=== PATIENT | female | born 1995 | race Caucasian/White ===

== ENCOUNTER 2022-08-26 07:49 | Outpatient (CLI) | payer BC, SELFPAY ==
--- NOTE | 2022-08-26 08:15 | CRLHL7_ITS ---
For Patients: As a result of the Cures Act, medical imaging exams and procedure reports are released immediately into your electronic medical record. You may view this report before your referring provider. If you have questions, please contact your health care provider. INDICATION: First trimester scan, establish dates. COMPARISON: None. TECHNIQUE: Real-time becerra-scale imaging of the pelvis was performed. FINDINGS: Sonographic imaging demonstrates a single living intrauterine gestation. The embryo demonstrates a regular cardiac rate measuring 176 beats per minute. The embryo`s crown-rump length measurement of 3.3 cm corresponds to a gestational age of 10 weeks 2 days with a sonographic due date of 03/22/2023. There is a normal-appearing yolk sac. There are no gross abnormalities noted within the embryo at this early state of development. The gestational sac has a normal appearance. There is no evidence of a perigestational hemorrhage. The amount of fluid within the sac appears appropriate for gestational age. The cervix is closed. The myometrium appears normal. Normal right ovary. Nonvisualization of the left ovary. There are no suspicious fluid collections noted in the cul-de-sac. IMPRESSION: Normal first trimester OB ultrasound exam. Gestational age calculated at 10 weeks 2 days with a sonographic due date of 03/22/2023. Dictated by Felice Kohler MD @ 08/26/2022 11:11:12 AM (Electronically Signed)
== END 2022-08-26 07:50 | disposition home or self-care (01) ==
LOC: US 07:51
PROVIDERS: Visit Provider Physician Assistant
DX: Z34.91 Encounter for supervision of normal pregnancy, unspecified, first trimester (principal); Z3A.10 10 weeks gestation of pregnancy
CPT/HCPCS: 0353U; 76801; 86592; 86703; 86762; 86787; 86803; 86850; 86900; 86901; 87086; 87340; 87491; 87591

== ENCOUNTER 2022-10-28 11:53 | Outpatient (CLI) | payer BC, SELFPAY ==
--- NOTE | 2022-10-28 12:15 | CRLHL7_ITS ---
For Patients: As a result of the Century Cures Act, medical imaging exams and procedure reports are released immediately into your electronic medical record. You may view this report before your referring provider. If you have questions, please contact your health care provider. INDICATION: Evaluate anatomy. COMPARISON: 08/26/2022 TECHNIQUE: Real time becerra scale imaging of the fetus was performed as well as color Doppler analysis of the umbilical vessels. FINDINGS: Sonographic imaging demonstrates a single living intrauterine gestation. Fetus demonstrates a regular cardiac rate of 146 beats per minute. Fetus has a transverse position, head maternal left. The placenta lies anteriorly without evidence of placenta previa. The edge of the placenta is located 3.2 cm from the internal cervical os. Amniotic fluid volume appears normal. Single deepest vertical pocket: 5.0 cm. The cervix is closed and measures 3.7 cm in length. The composite ultrasound gestational age is calculated at 19 weeks 6 days with an estimated sonographic due date of 03/18/2023. The estimated weight is 312 grams which lies at the 58th %. The following biometric measurements were obtained: Biparietal diameter: 4.4 cm/19 weeks 3 days 44th% Head circumference: 16.4 cm/19 weeks 1 day 23rd% Abdominal circumference: 14.6 cm/19 weeks 6 days 57th% Femur length: 3.2 cm/19 weeks 6 days 51st% The HC/AC ratio measures: 1.12 range (1.08-1.26) On anatomic survey, there is a normal appearance of the cerebral ventricles, cavum septi pellucidi, cisterna magna and cerebellum. The nose and lips were difficult to visualize due to position. The profile is normal. The cervical, thoracic and lumbar spine are well visualized and appear normal. There is a normal four-chamber heart view and the left and right ventricular outflow tracts appear normal. The diaphragm and stomach appear normal. The kidneys and bladder also appear normal. There is a normal three-vessel cord and cord insertion site. The four extremities appear normal. IMPRESSION: Concordance of clinical and sonographic dating. Incomplete visualization of the nose and lips due to position. Remainder of the anatomic survey is normal. Short-term follow-up recommended. Dictated by Felice Kohler MD @ 10/29/2022 6:53:36 AM (Electronically Signed)
== END 2022-10-28 11:54 | disposition home or self-care (01) ==
LOC: US 11:53
PROVIDERS: Visit Provider Obstetrics & Gynecology
DX: Z34.92 Encounter for supervision of normal pregnancy, unspecified, second trimester (principal); Z3A.19 19 weeks gestation of pregnancy
CPT/HCPCS: 76805

== ENCOUNTER 2022-11-24 07:01 | Outpatient (CLI) | payer BC, SELFPAY ==
--- NOTE | 2022-11-24 07:15 | CRLHL7_ITS ---
For Patients: As a result of the Century Cures Act, medical imaging exams and procedure reports are released immediately into your electronic medical record. You may view this report before your referring provider. If you have questions, please contact your health care provider. INDICATION: Follow-up missed anatomy COMPARISON: 10/28/2022 TECHNIQUE: Real time becerra scale imaging of the fetus was performed. FINDINGS: Sonographic imaging demonstrates a single living intrauterine gestation. Fetus demonstrates a regular cardiac rate of 150 beats per minute. Fetus has a vertex position. The placenta lies anteriorly. Normal nose and lips. IMPRESSION: Normal nose and lips. Dictated by Felice Kohler MD @ 11/24/2022 10:14:55 AM (Electronically Signed)
== END 2022-11-24 07:02 | disposition home or self-care (01) ==
PROVIDERS: Visit Provider Obstetrics & Gynecology
DX: O35.AXX0 Maternal care for other (suspected) fetal abnormality and damage, fetal facial anomalies, not applicable or unspecified (principal)
CPT/HCPCS: 76816

== ENCOUNTER 2023-02-17 14:40 | Outpatient (CLI) | payer BC, SELFPAY ==
[2023-02-18 14:19] LABS: Strep B DNA Probe NEGATIVE (Negative)
[2023-02-18 15:01] LABS: Strep B Pen/Amox Allergy No
== END 2023-02-17 14:41 | disposition home or self-care (01) ==
LOC: NFLDREF 14:41
PROVIDERS: Visit Provider Obstetrics & Gynecology
DX: Z34.93 Encounter for supervision of normal pregnancy, unspecified, third trimester (principal); Z3A.35 35 weeks gestation of pregnancy
CPT/HCPCS: 87081; 87653

== ENCOUNTER 2023-02-24 14:31 | Outpatient (CLI) | payer BC, SELFPAY | END 2023-02-24 14:32 | disposition home or self-care (01) | LOC: NFLDREF 14:31 | PROVIDERS: Visit Provider Obstetrics & Gynecology | DX: Z34.93 Encounter for supervision of normal pregnancy, unspecified, third trimester (principal); Z3A.36 36 weeks gestation of pregnancy | CPT/HCPCS: 80053 ==

== ENCOUNTER 2023-03-21 15:54 | Inpatient (IN) | payer BC, SELFPAY ==
--- NOTE | 2023-03-21 16:08 | P.OBHP_ITS ---
OB - H&P: HPI Labor/Induction History of Present Illness Time Seen by Provider: 17:00 Date Seen: 03/21/23 Chief Complaint: The patient is a 28 year old 1 para 0 at 40 and 1/7 weeks gestation by LMP consistent with 1st trimester ultrasound, who presents for elective induction. course complicated by regular maternal heart rate (PVCs on EKG), obesity, migraines, abnormal Pap test and left carpal tunnel. Complete history and physical was documented by Dr. Mcmullen on 03/17/23, please see this note for complete details. Betsey note she is feeling well today, no acute concerns. She has had some cramping today, irregular. Denies regular/painful uterine contractions, vaginal bleeding or leaking of fluid. Endorses active movement. She previously completed her consent for induction, no questions or concerns at this time. Chief complaint: Maternity Specific Issues/Plans OB patient H&P by CGM on 02/24/23 1. Irregular maternal heart rate noted on 02/24/23: -EKG: Sinus rhythm with occasional premature ventricular complexes, asymptomatic. Continue observation. 2.Obesity, BMI 32.9 * Recommend aspirin 81 mg starting at 12 weeks 3. Migraines 4. History of positive HPV in 2019 and 2019. Patient reports benign colposcopy in 2020. Pap 2020:NIL/-HPV * pap at NOB: ASCUS, -HPV * Repeat pap with HPV cotesting 5. Carpal tunnel, left * Wears wrist splint Flu vaccine:03/02/23 COVID vaccine: Not vaccinated, declines Tdap:01/06/23 Meds Home Medications and Allergies Home Medications Medication Instructions Recorded Confirmed Type docosahexaenoic acid 200 mg mg PO 08/26/22 03/17/23 History capsule ( DHA) ascorbate calcium (vitamin C) 500 1 g PO Q6H 09/30/22 03/21/23 History mg tablet calcium carbonate 200 mg calcium 200 mg PO BID 12/23/22 03/21/23 History (500 mg) chewable tablet (Tums) Allergies Allergy/AdvReac Type Severity Reaction Status Date / Time No Known Drug Allergies Allergy Verified 03/17/23 13:45 OB - H&P: Exam Physical Exam: Vital signs: Physical exam: General: No acute distress Psych: Alert and oriented x3, full affect Heart: Regular rate and rhythm, no murmur rub or gallop Lungs: Clear to auscultation bilaterally Abdomen: Gravid. Otherwise soft and nontender. EFW 3600g by Kristina. heart rate: Reactive NST. Baseline of 130 beats per minute, moderate variability, accelerations present, decelerations absent. Cervix: Fingertip, long, posterior Presentation: Cephalic OB - Problem Based A/P Additional Plan (1) : Status: Acute (2) PVC (premature ventricular contraction): Status: Acute (3) Elevated blood pressure reading without diagnosis of hypertension: Status: Acute Plan Ms. Gutierrez is a 28yo at 40w1d GA admitted for elective IOL. ANC complicated by maternal PVCs, obesity, migraines, abnormal pap test and carpal tunnel syndrome. Plan to admit to Labor and Delivery for IOL. She previously completed her induction consent form and H&P with Dr. Mcmullen on 03/17/2023. No questions at this time. - Start induction of labor with misoprostol - EFW 3600g by Kristina - Betsey had one mild range BP on arrival. She is asymptomatic with no headache, vision changes or RUQ pain. Plan to monitor BP for now - will obtain HELLP labs if she has any further elevated BPs. - Blood type O positive - GBS negative
[2023-03-21 16:30] VITALS: BP 135/99; PULSE 74; PULSE 94; TEMP 37; O2SAT 97
[2023-03-21 16:35] VITALS: BMI 35.1
[2023-03-21 17:05] VITALS: BP 138/78; PULSE 104
[2023-03-21] MEDS: miSOPROStoL 25 MCG/0.25 TABLET VAGINAL ×2 (17:29→22:42)
[2023-03-21 21:52] VITALS: BP 137/81; PULSE 84; RESP 16; TEMP 36.5
[2023-03-21 22:41] VITALS: BP 138/91; PULSE 100; RESP 16; TEMP 36.9
[2023-03-21 23:07] LABS: Basophils Absolute Auto 0.02 K/uL (0.00-0.30); Basophils Percent Auto 0.2 % (0.0-3.0); Eosinophils Absolute Auto 0.08 K/uL (0.00-0.50); Hematocrit 36.6 % (33.0-51.0); Hemoglobin* 12.5 gm/dL (12.0-16.0); Immature Granulocytes Abs Auto 0.05 K/uL (0.00-0.30); Immature Granulocytes Pct Auto 0.6 %; Lymphocytes Absolute Auto 1.69 K/uL (0.90-2.90); Lymphocytes Percent Auto 20.2 % (20-44); Mean Corpuscular HGB Conc 34 gm/dL (32-36); Mean Corpuscular Hemoglobin 30 pg (26-34); Mean Corpuscular Volume 86 fL (80-100); Monocytes Percent Auto 10.9 % (0.0-11.0); Neutrophils Absolute Auto 5.61 K/uL (1.7-7.0); Neutrophils Percent Auto 67.1 % (42.0-72.0); Platelet Count* 189 K/uL (140-440); RDW Coefficient of Variation % 13.5 % (11.5-15.5); Red Blood Count 4.24 m/uL (4.00-5.20); White Blood Count* 8.36 K/uL (4.50-11.00)
[2023-03-21 23:11] LABS: Slide Review Reflex No
[2023-03-21 23:23] LABS: Aspartate Amino Transferase* 42 U/L (12-35); Creatinine* 0.6 mg/dL (0.5-1.5); Est. Creatinine Clearance* 143.28; Estimated Glomerular Filt Rate 124 ml/min
[2023-03-21 23:24] LABS: Alanine Aminotransferase* 15 U/L (4-35); Blood Urea Nitrogen* 12 mg/dL (5-24)
[2023-03-22] VITALS (113 sets, daily range): BP systolic 86–195; BP diastolic 49–121; PULSE 64–121; RESP 16–20; TEMP 36.7–37.6; O2SAT 96–100
[2023-03-22 01:30] LABS: Total Protein Urine 12 mg/dL
[2023-03-22 01:31] LABS: Creatinine Urine 173.5 mg/dL
[2023-03-22] MEDS: CALCIUM CARBONATE 500 MG CHEW PO (05:28)
--- NOTE | 2023-03-22 07:53 | P.OBPN_ITS ---
Subjective Time Seen by Provider: 07:20 Date Seen: 03/22/23 Narrative: Patient is comfortable. Aware of contractions. Feels like contractions have been increasing in frequency in severity since her water broke spontaneously at 5:15 a.m. Leaking meconium-stained fluid. Objective Exam: General appearance: Alert, cooperative white female in no acute distress Abdomen: Soft, gravid, nontender. 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 Consider Pitocin administration to augment labor if needed. We discussed meconium staining of the amniotic fluid. Business Investor notification recommended.
[2023-03-22] MEDS: OXYTOCIN 30 unit/500 ML in NS 30 UNIT/500 ML BAG IVPB (08:30)
[2023-03-22] MEDS: LACTATED RINGERS 1000 ML 1,000 ML 125 ML IV ×3 (08:30→22:48)
[2023-03-22 08:38] LABS: Hematocrit 39.1 % (33.0-51.0); Hemoglobin* 13.3 gm/dL (12.0-16.0); Mean Corpuscular HGB Conc 34 gm/dL (32-36); Mean Corpuscular Hemoglobin 29 pg (26-34); Mean Corpuscular Volume 86 fL (80-100); Platelet Count* 179 K/uL (140-440); Red Blood Count 4.56 m/uL (4.00-5.20); White Blood Count* 10.05 K/uL (4.50-11.00)
[2023-03-22 08:45] LABS: Slide Review Reflex No
[2023-03-22 08:52] LABS: Alanine Aminotransferase* 16 U/L (4-35); Aspartate Amino Transferase* 42 U/L (12-35); Blood Urea Nitrogen* 8 mg/dL (5-24); Creatinine* 0.5 mg/dL (0.5-1.5); Est. Creatinine Clearance* 171.94; Estimated Glomerular Filt Rate 129 ml/min
[2023-03-22] MEDS: LACTATED RINGERS 1000 ML 1,000 ML 1200 ML IV ×2 (13:46→14:40)
[2023-03-22] MEDS: PHENYLEPHRINE 100 MCG/ML SYRINGE IVP ×2 (14:01→14:36)
[2023-03-22] MEDS: ROPIVACAINE 0.2% 100 ml 100 ML 12 MG EPIDURAL (14:18)
[2023-03-22] MEDS: LIDOCAINE 2% (PF) 5 ML VIAL EPIDURAL (14:20)
--- NOTE | 2023-03-22 14:25 | P.ANBPRC_ITS ---
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 What is your current living situation?: I presently have a place to live Problems where you live: no known problems In the past 12 months, utilities in danger of being shut off: no In past 12 months, lack of transportation kept you from medical appts, meetings, work, or getting things needed for daily living: no In the past 12 mos, have been you worried that your food would run out before you had money to buy more?: never true In the past 12 mos, the food you bought just didn't last and you didn't have money to buy more?: never true Smoking Status: Never smoker How often does anyone, including family, friends and others, physically hurt you : never How often does anyone, including family, friends and others, insult or talk down to you: never How often does anyone, including family, friends and others, threaten you with harm: never How often does anyone, including family, friends and others, scream or curse at you: never Little interest or pleasure in doing things: not at all Feeling down, depressed, or hopeless: not at all Meds Home Medications and Allergies Home Medications Medication Instructions Recorded Confirmed Type docosahexaenoic acid 200 mg mg PO 08/26/22 03/17/23 History capsule ( DHA) ascorbate calcium (vitamin C) 500 1 g PO Q6H 09/30/22 03/21/23 History mg tablet calcium carbonate 200 mg calcium 200 mg PO BID 12/23/22 03/21/23 History (500 mg) chewable tablet (Tums) Allergies Allergy/AdvReac Type Severity Reaction Status Date / Time No Known Drug Allergies Allergy Verified 03/17/23 13:45 Results Labs Labs: Laboratory Results - last 24 hr 03/21/23 03/22/23 03/22/23 23:00 00:10 08:26 WBC 8.36 10.05 RBC 4.24 4.56 Hgb 12.5 13.3 Hct 36.6 39.1 MCV 86 86 MCH 30 29 MCHC 34 34 RDW Coeff of Kenzie 13.5 Plt Count 189 179 Neut % (Auto) 67.1 Lymph % (Auto) 20.2 [place] % (Auto) 10.9 Eos % (Auto) 1.0 Baso % (Auto) 0.2 Neut # (Auto) 5.61 Lymph # (Auto) 1.69 [place] # (Auto) 0.90 Eos # (Auto) 0.08 Baso # (Auto) 0.02 Abs Immat Gran (auto) 0.05 Imm/Tot Granulo (auto) 0.6 BUN 12 8 Creatinine 0.6 0.5 Estimated Creat Clear 143.28 171.94 Estimated GFR 124 129 AST 42 H 42 H ALT 15 16 Urine Creatinine 173.5 Protein/Creatinin Ratio 0.00 Urine Total Protein 12 Blood Type O Positive Antibody Screen NEGATIVE Vital Signs Vital Signs: Last Vital Signs Temp 98.2 F 03/22/23 12:06 Pulse 96 03/22/23 14:23 Resp 16 03/22/23 12:06 BP 113/80 03/22/23 14:23 Pulse Ox 100 03/22/23 14:21 Weight: 107.819 kg Height: 175.26 cm Anesthesia Procedures Epidural Insertion Patient Location: OB Start Time: 14:00 Stop Time: 14:30 Start Date: 03/22/23 Stop Date: 03/22/23 Reason for Block: procedure for pain Patient Position: sitting Performed By: Sami Lee Low Voltage Electrician: Lavelle Giraldo Preanesthetic Checklist: IV checked, risks and benefits discussed, monitors and equipment checked, pre-op evaluation, timeout performed and anesthesia consent Prep: chlorhexidine gluconate Monitoring: blood pressure monitoring, continuous pulse oximetry and heart rate Approach: midline Vertebral Space: lumbar (1-5) Epidural Technique: HELEN saline Needle Type: Tuohy needle Injection Technique: continuous catheter Needle gauge: 17 Needle Length (cm): 10 cm Needle Insertion Depth (cm): 6 Catheter Gauge: 19 Catheter Type: multi-orifice Catheter at skin depth (cm): 11 Test Dose Result: negative and lidocaine 1.5% with epinephrine 1 to 200,000
[2023-03-22] MEDS: ePHEDrine sulfate 5 MG/ML inj 10 MG IVP ×2 (15:01→16:13)
[2023-03-22] MEDS: ONDANSETRON 2 MG/ML inj 4 MG IV (16:48)
[2023-03-22] MEDS: LACTATED RINGERS 1000 ML 1,000 ML 1250 ML IV (17:12)
--- NOTE | 2023-03-22 17:38 | PM.OBPNL ---
Subjective Time Seen by Provider: 17:30 Date Seen: 03/22/23 Narrative: The patient is comfortable with the epidural. The infusion was turned down slightly in order to see if her blood pressures would normalize, as ever since the epidural was administered, there have been variable and late decelerations of the heart tone with contractions. The Pitocin infusion has been turned off. Despite maternal repositioning, including hands knees, heart tracing remains category 2 with intermittent variable and late decelerations with slow return. Objective Exam: General appearance: Alert, cooperative white female in no acute distress Abdomen: Soft, gravid, nontender Extremities: 1+ edema bilaterally Vital Signs: Last Vital Signs Temp 99.0 F 03/22/23 17:25 Pulse 115 H 03/22/23 17:37 Resp 16 03/22/23 17:25 BP 105/66 03/22/23 17:37 Pulse Ox 99 03/22/23 17:16 Pelvic Exam Dilation (cm): 5 Effacement (%): 80 Station: -3 Comments: Particulate meconium-stained amniotic fluid Contractions Monitor mode: External Contraction pattern: Regular Contraction intensity: Mild Assessment Amniotic Membrane Status: SROM (0515, mec-stained) Status: Category ll Heart Rate Baseline: 135 Penitentiary Variability: Moderate (6-25) Monitor Accelerations: Present Monitor Decelerations: Late Plan Plan: At this point, I am concerned about well-being. She is not close to delivering, and given the meconium staining of the amniotic fluid and the periodically variable and late heart rate decelerations, I do not believe that the fetus can tolerate a lengthy labor. I would recommend proceeding with delivery. The patient is in agreement. Informed consent for primary section was obtained. OR staffs were notified. Pediatric evaluation at the time of delivery will be requested.
[2023-03-22] MEDS: CEFAZOLIN 1 GM inj 3 GM IVP (18:17)
[2023-03-22] MEDS: AZITHROMYCIN 500 MG in 0.9 % SODIUM CHLORIDE 250 ml 250 ML 255 MG IVPB (18:17)
--- NOTE | 2023-03-22 18:17 | W.ANESCHARGE ---
Anesthesia Charges Start Date/Time Anesthesia Start Date: 03/22/23 Anesthesia Start Time: 18:07 Stop Date/Time Anesthesia Stop Date: 03/22/23 Anesthesia Stop Time: 19:35
--- NOTE | 2023-03-22 18:40 | SUR.OPER ---
STATED THAT THE PLACENTA DID NOT NEED TO GO TO PATHOLOGY. THIS MANAGER FREELANCE ACKNOWLEDGED THAT STATEMENT.
[2023-03-22] MEDS: KETOROLAC 30 MG/ML inj IVP (19:12)
--- NOTE | 2023-03-22 19:18 | W.PM.GYNPROC ---
Procedure Note Date of procedure: 03/22/23 Pre-op diagnosis: 40 2/7 weeks gestation, intolerance of labor Post-op diagnosis: same Procedure: Primary low transverse section Anesthesia: epidural Complications: None Surgeon: Nilsa Blunt MD Estimated blood loss (mL): 630 Pathology: none sent Condition: stable Disposition: floor Findings: Live-born female , cephalic presentation, occiput transverse position, nuchal cord x1, normal uterus, tubes, and ovaries bilaterally. Thick meconium-stained fluid. Infant weight 8 lb 4 oz. Apgars 8 and 9 at 1 and 5 minutes respectively. Procedure Description: After obtaining informed consent, the patient was taken to the operating room where spinal anesthesia was obtained and found to be adequate. She was prepared and draped in the normal sterile fashion in the dorsal supine position with a leftward tilt. A Pfannenstiel skin incision was made with a scalpel. This incision was carried down to the underlying layer of fascia with the Bovie. The fascia was incised in the midline and the incision extended laterally. The superior and inferior aspects of the fascial incision were grasped with Sara clamps, elevated and the underlying rectus muscles dissected off sharply and with electrocautery. The rectus muscles were then in the midline. The Leon O retractor was then placed into the incision. The lower uterine segment was then incised in a transverse fashion with the scalpel. Upon entry into the uterus, meconium-stained amniotic fluid was noted. The uterine incision was extended laterally with blunt finger fractionation. The infant's head was delivered atraumatically, followed by the remainder of the 's body. The nose and mouth were suctioned with the bulb suction. The cord was doubly clamped and cut, and the was handed off the field to Gardenia Haro NP for evaluation. The placenta was delivered spontaneously with umbilical cord traction and fundal massage. The uterus was cleared of all clots and debris. The uterine incision was reapproximated in a running locking fashion with a 0 chromic suture. A 2nd layer of the same suture was used to imbricate in horizontal fashion. The gutters were irrigated and suctioned. All instruments and retractors were removed. The anterior peritoneum was reapproximated in a running fashion with a 3-0 Vicryl suture. The subfascial tissues were carefully inspected and hemostasis assured. The fascia was reapproximated in a running fashion with a looped 0 Maxon suture. The subcutaneous tissues were copiously irrigated. Hemostasis was assured. The skin was closed in a subcuticular fashion with 4-0 Vicryl. Exofin and Mepilex dressing were applied. The patient tolerated the procedure well. Sponge, lap, needle, and instrument counts were reported as correct x2. The patient was taken to the recovery room, awake, and in stable condition. She did receive 3 grams of IV Ancef and 500 mg azithromycin IV preoperatively. One thousand mg tranexamic acid was administered intraoperatively for brief uterine atony.
--- NOTE | 2023-03-22 20:07 | P.NB_ITS ---
Nerve Block Nerve Block Time Seen by Provider: 19:25 Date Seen: 03/22/23 Type of block requested by surgeon for post-operative analgesia: TAP Side: bilateral Time out performed: Yes Verification of patient name: Yes Verification of date of : Yes Name of person performing procedure: Sandra Amber Continuous monitoring Was continuous monitoring of O2 sat, B/P, regional account director, recorded every 15 minutes?: Yes Procedure Checklist: sterile prep, needles and gloves Ultrasound guided. Images saved: Yes Medications given in 5ml increments after negative aspiration: Marcaine %: 0.25 mL: 30 Needle gauge: 21 and Exparel mL: 10 Needle gauge: 21 Patient tolerated procedure well: Yes Block Charges Block Charge (with Pro Fee): TAP Bilateral Use of Ultrasound Machine for Block: Yes- US Guidance/pain block
[2023-03-23] VITALS (24 sets, daily range): BP systolic 108–130; BP diastolic 69–86; PULSE 71–87; RESP 15–18; TEMP 36.6–36.9; O2SAT 95–98
[2023-03-23] MEDS: KETOROLAC 30 MG/ML inj IVP ×4 (01:20→19:17)
[2023-03-23 06:55] LABS: Hemoglobin* 11.1 gm/dL (12.0-16.0)
--- NOTE | 2023-03-23 07:42 | P.OBPN_ITS ---
OB - PN:Subj Subjective Date Seen: 03/23/23 Patient comments OB post-: no complaints, pain well controlled, tolerating diet and flatus present [place] status: doing well [place] feeding status: exclusively Narrative: Betsey is a 28 y.o. who was admitted to L & D for elective induction. ?She had an uncomplicated for intolerance of labor. She was diagnosed with gestational hypertension during labor.?The patient feels well. ?The pain is well controlled with current medications. ?She has no new complaints. ?She is breast feeding and reports things are going well.? the patient has done well.? Vitals have been stable, blood pressures have been mostly normotensive since delivery.? She has remained afebrile.? Has a good appetite, is tolerating a general diet. ?Urinary catheter was removed this morning, she has not yet voided.? She is passing gas and has not had a bowel movement.? She is ambulating and denies any dizziness.? Has small amount of rubra lochia. OB - PN: Obj Exam Physical Exam: Vital signs: Temp Pulse Resp BP Pulse Ox O2 Del Method 97.8 F 78 15 120/77 97 Room Air 03/23/23 07:24 03/23/23 07:24 03/23/23 07:24 03/23/23 07:24 03/23/23 07:24 03/23/23 07:24 Narrative: GENERAL APPEARANCE:? normal affect, alert, no distress MOOD:? appropriate CHEST:? clear to auscultation HEART:? regular rate and rhythm ABDOMEN:? soft, non-tender the uterine fundus is At Umbilicus, Midline and is appropriate for the stage of recovery. PERINEUM:? no edema of the perineum. EXTREMITIES:? normal and trace edema Incision: Dressing in place; clean, dry, and intact Urinary Catheter Management: Urethral: Cath placed during this visit: yes Urethral indwelling: No Reason for continuing: surgical procedure Insertion date: 03/22/23 OB - PN: Obj Data Labs Labs: Laboratory Results - last 24 hr 03/22/23 03/23/23 08:26 06:47 WBC 10.05 RBC 4.56 Hgb 13.3 11.1 L Hct 39.1 MCV 86 MCH 29 MCHC 34 Plt Count 179 BUN 8 Creatinine 0.5 Estimated Creat Clear 171.94 Estimated GFR 129 AST 42 H ALT 16 OB - PN: A/P Delivery Assessment and Plan (1) care and examination immediately after delivery: Status: Acute (2) Status post section: Status: Acute (3) Gestational hypertension: Status: Acute (4) Lactating mother: Status: Acute Plan day: 1 Plan: routine care Comments: Routine post-op care Lactating mother, may see if desired GHTN. Continue to monitor BP, consider repeat labs if increasing BP or patient develops other symptoms. Consulted with Dr. Pham who does not recommend repeat pre-e labs at this time. Anticipate discharge home tomorrow or the following day.
[2023-03-23] MEDS: DOCUSATE SODIUM 100 MG CAPSULE PO (09:52)
[2023-03-23] MEDS: LANOLIN CREAM 1 APPLIC TOPICAL (09:54)
[2023-03-23] MEDS: ACETAMINOPHEN 500 MG TABLET 1000 MG PO ×3 (09:55→22:16)
[2023-03-24] MEDS: KETOROLAC 30 MG/ML inj IVP (01:07)
[2023-03-24 03:35] VITALS: BP 123/87; PULSE 78; RESP 16; TEMP 36.6; O2SAT 97
[2023-03-24 07:32] VITALS: BP 124/86; PULSE 83; RESP 16; TEMP 36.9; O2SAT 95
[2023-03-24] MEDS: ACETAMINOPHEN 500 MG TABLET 1000 MG PO ×3 (07:57→20:40)
--- NOTE | 2023-03-24 07:57 | PM.OBDSVD1 ---
DS: Providers Provider Date Seen: 03/24/23 Date of admission: 03/21/23 15:54 Primary care physician: Not a Local Provider Admitting Clinician: Carmella Bay MD Attending Physician on discharge: Michael Johnson CNM Date of Discharge: 03/24/23 DS: Diagnosis Discharge Diagnosis (1) care and examination immediately after delivery: Status: Acute (2) Status post section: Status: Acute (3) Gestational hypertension: Status: Acute (4) Elevated blood pressure reading without diagnosis of hypertension: Status: Acute (5) PVC (premature ventricular contraction): Status: Acute Exam Narrative: Exam Narrative: VSS. ?AfebrileGENERAL APPEARANCE: ?normal affect, alert, no distress MOOD: ?appropriate HEENT: normocephalic, neck supple, full ROM CHEST: ?Symmetrical chest wall movement. ?Normal respiratory effort. ?Clear to auscultation HEART: ?irregular rate and rhythm, pt has history of PVCs noted in ABDOMEN: ?soft, non-tender. Uterine fundus is firm, at Umbilicus, Midline and is appropriate for the stage of recovery. ?Bowel sounds present. EXTREMITIES: ?normal and no edema SKIN: warm, dry. ? ?Incision clean/dry/well approximated. ?No signs of infection noted. Const: Vital Signs, click to edit/add: Vital Signs - 24 hr 03/23/23 08:33 03/23/23 09:33 03/23/23 10:33 Temperature Pulse Rate [Pulse Oximeter] Respiratory Rate 16 16 15 Blood Pressure [Le ft Arm] Pulse Oximetry Oxygen Delivery Me thod 03/23/23 11:33 03/23/23 11:41 03/23/23 12:33 Temperature 97.8 F Pulse Rate [Pulse Oximeter] 87 Respiratory Rate 16 16 16 Blood Pressure [Le ft Arm] 130/84 Pulse Oximetry 97 Oxygen Delivery Me thod Room Air 03/23/23 13:33 03/23/23 14:33 03/23/23 15:14 Temperature 97.9 F Pulse Rate [Pulse Oximeter] 85 Respiratory Rate 16 16 16 Blood Pressure [Le ft Arm] 108/70 Pulse Oximetry 97 Oxygen Delivery Me thod Room Air 03/23/23 15:26 03/23/23 16:33 03/23/23 17:33 Temperature Pulse Rate [Pulse Oximeter] Respiratory Rate 16 16 17 Blood Pressure [Le ft Arm] Pulse Oximetry Oxygen Delivery Me thod 03/23/23 19:50 03/24/23 03:35 03/24/23 07:32 Temperature 98.2 F 97.8 F 98.5 F Pulse Rate [Pulse Oximeter] 71 78 83 Respiratory Rate 18 16 16 Blood Pressure [Le ft Arm] 123/86 123/87 124/86 Pulse Oximetry 97 97 95 Oxygen Delivery Me thod Room Air Room Air Room Air Documenting provider has reviewed patient's vital signs: yes OB - DS: Summary Hospital Course Hospital Course: The patient is a 28 year old G 1 P 1 at 40.1 weeks gestation that was admitted to the [facility] on 03/21/23 for TOLAC. She had an uncomplicated delivery. She delivered a viable female . She is breast feeding. the patient has done well. Peripartum Data delivery method: Repeat Section Laceration description: None Procedures: Procedures Operation Date: 03/22/23 18:00 Actual Procedure Side Surgeon p Section Not Applicable Nilsa Blunt MD complications: none Infant Gender: Female Discharge Plan: Home Status at Discharge Functional status at discharge: independent ambulation Overall status at discharge: patient is progressing back to baseline Time Spent with Patient Time attestation: Total time spent providing and/or coordinating discharge services: Time spent: Less than 30 minutes Discharge Plan Discharge Disposition: Home, Self-Care Date of Admission: 03/21/23 15:54 Attending Provider on Discharge: Michael Johnson Primary Care Provider: Provider,Not a Local Condition: Stable Anticipated Discharge Date/Time: 03/24/23 12:00 Discharge Medications: New acetaminophen 500 mg Tablet 1,000 mg PO Q6H PRN (Reason: pain/fever) Qty: 0 0RF docusate sodium 100 mg Capsule 100 mg PO DAILY Qty: 60 2RF ibuprofen 600 mg Tablet 600 mg PO Q6H PRN (Reason: Pain) Qty: 60 1RF oxycodone 5 mg Tablet 5 - 10 mg PO Q4H PRN (Reason: Pain) Qty: 10 0RF Continued ascorbate calcium (vitamin C) 500 mg tablet 1 g PO Q6H DHA 200 mg capsule 200 mg PO DAILY calcium carbonate [Tums] 200 mg calcium (500 mg) tablet,chewable 200 mg PO BID Discharge Orders: Discharge Order (Routine); Ordered 03/24/23 Ordered By: Michael Johnson Patient Education: OB Over the Counter Medication Information, OB /Breast Feeding Additional Instructions: Discharge instructions were reviewed with the patient including signs and symptoms of infection and home going medications Lifting Restrictions: 20 pounds for 6 weeks No not submerge incision under water X 2 weeks? Nothing vaginally for 6 weeks: no tampons or intercourse Do not drive while taking narcotic pain medication(s) Off Work or School for 8 weeks [facility] for [facility] BP check?[Monday 6] Call with BP greater than or equal to 160/110 2-week visit: incision check, discuss feeding concerns, review control options and screen for anxiety/depression. 6-week visit for an annual exam. consultation services are available to all mothers and babies for the first year after delivery.? To make an appointment, please call [phone]. Activity Level: Activity as Tolerated Discharge Diet: Regular Follow Up Appointments: Provider,Not a Local [Primary Care Provider] - [facility] [Provider Group] Forms: [employer] Info Instructions
[2023-03-24] MEDS: DOCUSATE SODIUM 100 MG CAPSULE PO (07:58)
[2023-03-24] MEDS: IBUPROFEN 600 MG TABLET PO ×2 (12:17→18:56)
[2023-03-24 13:00] VITALS: BP 126/89; PULSE 80; RESP 16; TEMP 36.8; O2SAT 95
[2023-03-24 20:29] VITALS: BP 128/86; PULSE 72; RESP 16; TEMP 36.5; O2SAT 96
[2023-03-24 23:54] VITALS: BP 130/88; PULSE 72; RESP 16; TEMP 36.6; O2SAT 97
[2023-03-25] MEDS: IBUPROFEN 600 MG TABLET PO (04:56)
[2023-03-25 08:15] VITALS: BP 131/92; PULSE 63; RESP 16; TEMP 36.5; O2SAT 98
[2023-03-25] MEDS: ACETAMINOPHEN 500 MG TABLET 1000 MG PO (08:19)
[2023-03-25] MEDS: DOCUSATE SODIUM 100 MG CAPSULE PO (08:19)
--- NOTE | 2023-03-25 10:06 | PM.OBDSVD1 ---
DS: Providers Provider Time Seen by Provider: 10:06 Date Seen: 03/25/23 Date of admission: 03/21/23 15:54 Primary care physician: Not a Local Provider Admitting Clinician: Carmella Bay MD Attending Physician on discharge: Carmella Bay MD Date of Discharge: 03/25/23 DS: Diagnosis Discharge Diagnosis (1) Gestational hypertension: Status: Acute (2) Status post section: Status: Acute (3) History of abnormal cervical Pap smear: Status: Acute Problem details: ASCUS/HPV+ on 11/13/2018 with normal colposcopy. 02/18/2020: normal pap/+HPV. [place] 2019: low grade cell changes. 05/17/2021: NIL/-HPV (4) GERD (gastroesophageal reflux disease): Status: Acute (5) Lactating mother: Status: Acute Exam Narrative: Exam Narrative: Physical exam: General: No acute distress Psych: Alert and oriented x3, full affect HEENT: Normocephalic, atraumatic Heart: Regular rate and rhythm, no murmur rub or gallop Lungs: Clear to auscultation bilaterally Abdomen: Normoactive bowel sounds, soft, no tenderness, rebound, or guarding. Fundus firm and 3 cm below umbilicus Skin: No lesions or rashes Lower extremities: 1+ bilateral lower extremity edema Pelvic exam: Scant blood on pad. Const: Vital Signs, click to edit/add: Vital Signs - 24 hr 03/24/23 13:00 03/24/23 20:29 03/24/23 23:54 Temperature 98.3 F 97.7 F 97.8 F Pulse Rate [Pulse Oximeter] 80 72 72 Respiratory Rate 16 16 16 Blood Pressure [Ri ght Arm] 126/89 128/86 130/88 Pulse Oximetry 95 96 97 Oxygen Delivery Me thod Room Air Room Air Room Air 03/25/23 08:15 Temperature 97.7 F Pulse Rate [Pulse Oximeter] 63 Respiratory Rate 16 Blood Pressure [Ri ght Arm] 131/92 H Pulse Oximetry 98 Oxygen Delivery Me thod Room Air OB - DS: Summary Hospital Course Hospital Course: Betsey is a 28 year old G 1 P 1001 at 40.1 weeks gestation that was admitted to the Center on 03/21/23 for IOL. She had an uncomplicated delivery. The indication for delivery was intolerance of labor. She delivered a viable female infant (Serg). She is breast and bottle feeding. the patient has done well. She stayed yesterday due to concern for hypoglycemia. Betsey is feeling great. Overnight she had no complaints. Her pain is well controlled on oral pain medications. She is tolerating a regular diet. She has passed flatus. She is ambulating without difficulty. Lochia is scant. She is urinating without a thompson. Patient denies chest pain, SOB, n/v, headache, RUQ pain, vision changes, dizziness. We discussed her GHTN diagnosis. Reviewed severe pre-eclampsia symptoms. She knows to call immediately if she has any of those symptoms or BP >/= 160/110. Her has a diagnosis of hypertension and is on medication for it. Thus, they have a blood pressure cuff at home and is very well educated on how to use it correctly. The nurses will also be going over monitoring/taking her blood pressures at home upon discharge. Time spent discussing smoking cessation with patient: 3 to 10 minutes Peripartum Data Procedures: Procedures Operation Date: 03/22/23 18:00 Actual Procedure Side Surgeon p Section Not Applicable Nilsa Blunt MD Infant Gender: Female Discharge Plan: Home Time Spent with Patient Time attestation: Total time spent providing and/or coordinating discharge services: Discharge Plan Discharge Disposition: Home, Self-Care Date of Admission: 03/21/23 15:54 Attending Provider on Discharge: Michael Johnson Primary Care Provider: Provider,Not a Local Condition: Stable Anticipated Discharge Date/Time: 03/24/23 12:00 Discharge Medications: Continued ascorbate calcium (vitamin C) 500 mg tablet 1 g PO Q6H DHA 200 mg capsule 200 mg PO DAILY calcium carbonate [Tums] 200 mg calcium (500 mg) tablet,chewable 200 mg PO BID No Action ibuprofen 600 mg tablet 600 mg PO Q6H PRN (Reason: fever or pain) Qty: 60 0RF acetaminophen [Tylenol Extra Strength] 500 mg tablet 1,000 mg PO Q6H PRN (Reason: fever or pain) Qty: 60 0RF oxycodone 5 mg tablet 5 mg PO Q6H PRN (Reason: pain) Qty: 20 0RF docusate calcium 240 mg capsule 240 mg PO QHS Qty: 30 0RF Discharge Orders: Discharge Order (Routine); Ordered 03/25/23 Ordered By: Michael Johnson Consulting provider completed their portion of the discharge: Yes Patient Education: OB Over the Counter Medication Information, OB /Breast Feeding Additional Instructions: Discharge instructions were reviewed with the patient including signs and symptoms of infection and home going medications Lifting Restrictions: 20 pounds for 6 weeks No not submerge incision under water X 2 weeks? Nothing vaginally for 6 weeks: no tampons or intercourse Do not drive while taking narcotic pain medication(s) Off Work or School for 8 weeks [facility] for a BP check?[MondayMar.27] Call with BP greater than or equal to 160/110 2-week visit: incision check, discuss infant feeding concerns, review control options and screen for anxiety/depression. 6-week visit for an annual exam. consultation services are available to all mothers and babies for the first year after delivery.? To make an appointment, please call [phone]. Activity Level: Activity as Tolerated Discharge Diet: Regular Follow Up Appointments: [facility] [Provider Group] Provider,Not a Local [Primary Care Provider] - Forms: [employer] Info Instructions
== END 2023-03-25 11:55 | disposition home or self-care (01) | DRG 540 ==
PROVIDERS: Obstetrics & Gynecology; Admitting Provider Obstetrics & Gynecology; Visit Provider Obstetrics & Gynecology
PROC: 10D00Z1 Extraction of Products of Conception, Low, Open Approach (ICD-10-PCS; CPT 59514; principal; 2023-03-22 17:45)
DX: O76 Abnormality in fetal heart rate and rhythm complicating labor and delivery (principal); O13.4 Gestational [pregnancy-induced] hypertension without significant proteinuria, complicating childbirth; O62.2 Other uterine inertia; G89.18 Other acute postprocedural pain; O99.214 Obesity complicating childbirth; O99.42 Diseases of the circulatory system complicating childbirth; I49.3 Ventricular premature depolarization; O77.0 Labor and delivery complicated by meconium in amniotic fluid; Z87.410 Personal history of cervical dysplasia; K21.9 Gastro-esophageal reflux disease without esophagitis; G43.829 Menstrual migraine, not intractable, without status migrainosus; G56.02 Carpal tunnel syndrome, left upper limb; Z37.0 Single live birth; Z3A.40 40 weeks gestation of pregnancy
CPT/HCPCS: 01967; 01968; 36415; 59200; 64488; 76815; 76942; 82565; 82570; 84156; 84450; 84460; 84520; 85018; 85025; 85027; 86850; 86900; 86901; A9270; J0456; J0690; J1885; J2371; J2405; J2795; J7050; J7120